=== PATIENT | male | born 1940 | race Caucasian/White ===

== ENCOUNTER 2019-12-16 20:19 | Inpatient (IN) | payer OTHER, MEDICAID, SELFPAY ==
[~2019-12-16] VITALS: Ht 175.3 cm; Wt 90.7 kg
[2019-12-16] MEDS: NACL 0.9% 1,000 ML IV SCH
--- NOTE | 2019-12-16 20:19 | NUR ---
pt biba to bed 2.
--- NOTE | 2019-12-16 20:19 | NUR ---
SEIZURE PRECAUTIONS PLACED FOR PT
--- NOTE | 2019-12-16 20:20 | NUR ---
Pt placed on pulse ox and 3 lead ecg.
[2019-12-16 20:23] VITALS: BP_SYST 168; BP_SYST 96; BP_DIAS 70; BP_DIAS 90
--- NOTE | 2019-12-16 20:30 | NUR ---
PATIENT ERINN FROM [facility] FOR SEIZURE. PER EMS PATIENT HAD A WITNESSED SEIZURE FROM PATIENTS ROOMMATE FOR 20-30 SECONDS. PATIENTN ARRIVED TO HOSPITAL, PLACED IN SEIZURE PRECAUTIONS. COVID PRECAUTIONS PLACED. PER DAUGHTER ON PHONE AND FACILITY: PATIENT HAS HAD A CHRONIC COUGH AND WHEEZING FROM COPD BUT HAS GOTTEN WORSE. PATIENT AOX3, BUT WOULD ANSWER QUESTIONS INCORRECTLY AT TIMES, GCS 13 ([id number]). PATIENT DOES NOT KNOW WHY HE WAS BROUGHT TO HOSPITAL. PER FACILTIY PATIENT HAS HAD A STROKE IN 2018 AND HAS LEFT SIDED WEAKNESS SINCE. PATIENT BREATHING EVEN AND UNLABORED, WHEEZING ON EXPIRATION, SKIN WARM AND DRY. BED IN LOWEST POSITION, LOCKED, BED RAIL UPX1. PMH - STROKE (2018), HTN, COPD, SEVERE HEARING LOSS ALLERGIES - NKA
--- NOTE | 2019-12-16 20:30 | NUR ---
Dr. moore at bedside.
[2019-12-16] MEDS ORDERED: LORazepam 2 MG/ML VIAL IVP ONE (21:00)
[2019-12-16 21:21] LABS: BASOPHILS # (AUTO) 0.1 K/uL (0.00-0.22); BASOPHILS % (AUTO) 1.2 % (0.0-2.0); EOSINOPHILS # (AUTO) 0.8 K/uL (0-0.4); EOSINOPHILS % (AUTO) 8.5 % (0.0-4.0); HEMATOCRIT 44.4 % (36-52); HEMOGLOBIN 14.9 g/dL (12.0-18.0); LYMPHOCYTES # (AUTO) 3.4 K/uL (2.0-11.5); LYMPHOCYTES % (AUTO) 37.4 % (20.5-51.1); MEAN CORPUSCULAR HEMOGLOBIN 31 pg (27-31); MEAN CORPUSCULAR HGB CONC 34 g/dL (33-37); MEAN CORPUSCULAR VOLUME 90.9 fL (80-94); MONOCYTES % (AUTO) 10.7 % (1.7-9.3); NEUTROPHILS # (AUTO) 3.8 K/uL (1.8-7.7); NEUTROPHILS % (AUTO) 42.2 % (42.2-75.2); PLATELET COUNT (AUTO) 182 K/uL (140-450); RED BLOOD CELL COUNT(AUTO) 4.89 MIL/uL (4.20-6.10); RED CELL DISTRIBUTION WIDTH 14.3 % (11.6-13.7)
[2019-12-16 21:24] LABS: APPEARANCE,URINE CLEAR (CLEAR); BILIRUBIN,URINE NEGATIVE (NEGATIVE); BLOOD, URINE TRACE-I (NEGATIVE); COLOR,URINE YELLOW (YELLOW); LEUKOCYTE ESTERASE ,URINE NEGATIVE (NEGATIVE); NITRITE, URINE NEGATIVE (NEGATIVE); UGLUCOSE NEGATIVE (NEGATIVE)
--- NOTE | 2019-12-16 21:25 | NUR ---
CORONAVIRUS, RSV, AND INFLUENZA SWABS OBTAINED
--- NOTE | 2019-12-16 21:31 | NUR ---
PATIENT GOING TO CT SCAN
[2019-12-16 21:34] LABS: RBC,URINE 0-5 /HPF (0-5); WBC,URINE 0-5 /HPF (0-5)
[2019-12-16 21:40] LABS: ALBUMIN 3.7 g/dL (3.4-5.0); ANION GAP 12.5 (8-16); ASPARTATE AMINOTRANSFERASE 32 U/L (15-37); CARBON DIOXIDE 28.1 mmol/L (21-32); CHLORIDE 103 mmol/L (98-107); GLUCOSE 103 mg/dL (74-106); POTASSIUM 3.6 mmol/L (3.5-5.1); PROTHROMBIN TIME 11.7 secs (10.8-13.4); SODIUM SERUM 140 mmol/L (136-145); TOTAL BILIRUBIN 0.6 mg/dL (0.0-1.0); UREA NITROGEN, BLOOD 14 mg/dL (7-18)
[2019-12-16 21:49] LABS: C-REACTIVE PROTEIN QUANT 0.3 mg/dL (0.0-0.9); LACTATE DEHYDROGENASE 222 U/L (85-227)
[2019-12-16 22:18] LABS: RSV NEGATIVE (NEGATIVE)
[2019-12-16] MEDS ORDERED: DOCUSATE SODIUM 100 MG GELCAP PO PRN (22:50)
[2019-12-16] MEDS ORDERED: HYDROcodone/APAP 5/325 MG 1 TAB TAB PO PRN (22:50)
[2019-12-16] MEDS ORDERED: LORazepam 2 MG/ML VIAL IM/IVP PRN (22:50)
[2019-12-16] MEDS ORDERED: ACETAMINOPHEN 325 MG TAB PO PRN (22:50)
[2019-12-16] MEDS ORDERED: ONDANSETRON 4 MG/2 ML VIAL IM/IVP PRN (22:50)
[2019-12-16] MEDS ORDERED: MORPHINE SULFATE 2 MG/ML SYR IVP PRN (22:50)
[2019-12-16 23:20] LABS: MAGNESIUM 1.8 mg/dL (1.8-2.4); PHOSPHORUS 2.9 mg/dL (2.5-4.9); THYROID STIMULATING HORMONE 2.03 uIU/mL (0.34-3.74)
[2019-12-16] MEDS ORDERED: AZITHROMYCIN 250 MG TAB PO SCH (23:40)
[2019-12-16] MEDS ORDERED: ALBUTEROL HFA MDI 90 MCG/ACTUATION 8 GM INH PRN (23:40)
--- NOTE | 2019-12-16 23:55 | NUR ---
Note janieone in EDM - 12/17/19 at 0006 by [facility] Patient will be admitted to care of Dr Kulkarni. Admited to Tele. Will go to room 115. Belongings list completed. Report to Manuel LAST. Patient is not as confused as during triage, patient is more coherent and able to answer questions as asked.
[2019-12-17] VITALS: BP 139/69
--- NOTE | 2019-12-17 | NUR ---
RECEIVED BEDSIDE REPORT FROM ER NURSE, SHERRILL. PT BREATHING EVEN AND UNLABORED. SKIN INTACT, WARM AND DRY TO TOUCH. DX: NEW SEIZURE, HX: HTN, STROKE, COPD. IV SITE ON RAC, 20G PATENT, INTACT AND ASYMPTOMATIC. DROPLET AND CONTACT PRECAUTION D/T RULING OUT COVID 19. SEIZURE, FALL PRECAUTION IN PLACE, MRSA SWAB DONE, VS CHECKED, 97% IN ROOM AIR, 80, 98.1, 139/69, 0/10. PT HAVE HARD OF HEARING ON BOTH EAR. BED IN LOW POSITION, CALL LIGHT WITHIN REACH.
[2019-12-17] MEDS ORDERED: AZITHROMYCIN 250 MG TAB ONE (00:36)
--- NOTE | 2019-12-17 00:39 | NUR ---
GIVEN AZITHROMYCIN MD ORDERED. PT TOLERATED WELL.
--- NOTE | 2019-12-17 01:00 | NUR ---
MADE CALL TO DAUGHTER AND CONNECT WITH PT.
[2019-12-17] MEDS ORDERED: CARV3.12 PO (01:08)
[2019-12-17] MEDS ORDERED: LIP80 PO (01:08)
[2019-12-17] MEDS ORDERED: CARB15DR61 OT (01:08)
[2019-12-17] MEDS ORDERED: ASPI-1822 PO (01:08)
[2019-12-17] MEDS ORDERED: SENN-72 PO (01:08)
[2019-12-17] MEDS ORDERED: MELA3TER PO (01:08)
[2019-12-17] MEDS ORDERED: MULT1SGL58 PO (01:08)
[2019-12-17] MEDS ORDERED: AMLO2.5T PO (01:08)
[2019-12-17] MEDS ORDERED: DOCU-299 PO (01:08)
[2019-12-17] MEDS ORDERED: OLOP2.5S OP (01:08)
[2019-12-17] MEDS ORDERED: LACT10CA1 PO (01:08)
[2019-12-17] MEDS ORDERED: MELATONIN 3 MG TAB PO PRN (01:10)
[2019-12-17] MEDS ORDERED: SENNA 8.6 MG TAB PO PRN (01:10)
[2019-12-17] MEDS ORDERED: guaiFENesin DM 200/20 MG-10 ML 10 ML UDC PO PRN (01:50)
[2019-12-17] MEDS ORDERED: GUAI-646 PO (02:01)
[2019-12-17] MEDS ORDERED: PRED20TA5 PO (02:01)
[2019-12-17] MEDS: CARVEDILOL 3.125 MG TAB PO SCH ×3 (02:26→20:05)
--- NOTE | 2019-12-17 02:26 | NUR ---
GIVEN COREG MD ORDERED. PT TOLERATED WELL.
[2019-12-17 04:00] VITALS: BP 146/65
--- NOTE | 2019-12-17 04:00 | NUR ---
VS CHECKED, WITHIN PT'S BASELINE, CHANGED PT WITH ORTHODONTIC TREATMENT COORDINATOR, SARA, ASSESS SKIN, NO OPEN WOUND OR FUNGAL INFECTION NOTED.
--- NOTE | 2019-12-17 05:35 | NUR ---
PT SLEEPING IN BED. NO ACUTE DISTRESS NOTED.
[2019-12-17] MEDS ORDERED: cefTRIAXone 1,000 MG VIAL ONE (06:59)
--- NOTE | 2019-12-17 07:01 | NUR ---
GIVEN ROCEPHIN MD ORDERED. PT TOLERATED WELL. PT IN STABLE CONDITION. WILL ENDORSE PT TO DAY SHIFT NURSETRINITY FOR CONTINUOUS CARE.
--- NOTE | 2019-12-17 07:02 | NUR ---
RECEIVED REPORT FROM COTTON FARMWORKER NURSE KODY FOR CONTINUITY OF CARE. PT IN STABLE CONDITION. RESPIRATIONS EVEN AND UNLABORED. IV INTACT AND PATENT. SAFETY MEASURES IN PLACE. BED IN LOW POSITION. BED ALARM ON. CALL LIGHT AT BEDSIDE. WILL CONTINUE TO MONITOR.
[2019-12-17 07:44] LABS: BASOPHILS # (AUTO) 0.1 K/uL (0.00-0.22); BASOPHILS % (AUTO) 0.9 % (0.0-2.0); EOSINOPHILS # (AUTO) 0.6 K/uL (0-0.4); EOSINOPHILS % (AUTO) 6.5 % (0.0-4.0); HEMATOCRIT 39.6 % (36-52); HEMOGLOBIN 13.5 g/dL (12.0-18.0); LYMPHOCYTES # (AUTO) 2.4 K/uL (2.0-11.5); LYMPHOCYTES % (AUTO) 26.5 % (20.5-51.1); MEAN CORPUSCULAR HEMOGLOBIN 31 pg (27-31); MEAN CORPUSCULAR HGB CONC 34 g/dL (33-37); MEAN CORPUSCULAR VOLUME 90.3 fL (80-94); MONOCYTES # (AUTO) 0.8 K/uL (0.8-1.0); MONOCYTES % (AUTO) 8.9 % (1.7-9.3); NEUTROPHILS # (AUTO) 5.2 K/uL (1.8-7.7); NEUTROPHILS % (AUTO) 57.2 % (42.2-75.2); PLATELET COUNT (AUTO) 149 K/uL (140-450); RED BLOOD CELL COUNT(AUTO) 4.39 MIL/uL (4.20-6.10); RED CELL DISTRIBUTION WIDTH 14.2 % (11.6-13.7); WHITE BLOOD COUNT (AUTO) 9.1 K/uL (4.8-10.8)
[2019-12-17 07:49] LABS: ANION GAP 12.8 (8-16); CARBON DIOXIDE 25.8 mmol/L (21-32); CHLORIDE 105 mmol/L (98-107); CREATININE 0.9 mg/dL (0.6-1.3); GLUCOSE 94 mg/dL (74-106); POTASSIUM 3.6 mmol/L (3.5-5.1); SODIUM SERUM 140 mmol/L (136-145); UREA NITROGEN, BLOOD 12 mg/dL (7-18)
[2019-12-17 08:00] VITALS: BP 136/84
[2019-12-17 08:03] LABS: CHOL/HDL RATIO 1.9 (1-4.5)
[2019-12-17] MEDS: ASCORBIC ACID 500 MG TAB PO SCH (08:31)
[2019-12-17] MEDS: LACTOBACILLUS RHAMNOSUS GG 1 EACH CAP PO SCH (08:31)
[2019-12-17] MEDS: ZINC SULF 220 MG CAP PO SCH (08:31)
[2019-12-17] MEDS: MULTIVITAMIN/MINERALS 1 TAB PO SCH (08:32)
[2019-12-17] MEDS: DOCUSATE SODIUM 100 MG GELCAP PO SCH (08:32)
[2019-12-17] MEDS: amLODIPine 5 MG TAB PO SCH (08:32)
[2019-12-17] MEDS: ASPIRIN 81 MG TAB.CHEW PO SCH (08:32)
[2019-12-17] MEDS: guaiFENesin 600 MG TABER PO SCH ×2 (08:33→20:05)
--- NOTE | 2019-12-17 08:33 | NUR ---
GAVE ORDERED DUE MEDICATIONS AT THIS TIME. PT TOLERATED WELL. BED IN LOW POSITION. CALL LIGHT AT BEDSIDE. WILL CONTINUE TO MONITOR.
[2019-12-17] MEDS: ENOXAPARIN 40 MG/0.4 ML SYR SUBQ SCH (08:37)
[2019-12-17] MEDS ORDERED: predniSONE 20 MG TAB PO SCH (09:00)
[2019-12-17] MEDS ORDERED: CARBAMIDE PEROXIDE 6.5% OT 15 ML BTL OT SCH (09:00)
[2019-12-17] MEDS ORDERED: ENOXAPARIN 40 MG/0.4 ML SYR SUBQ SCH (09:00)
--- NOTE | 2019-12-17 09:00 | NUR ---
PATIENT HAS BEEN SCREENED AND CATEGORIZED MODERATE NUTRITION RISK. PATIENT WILL BE SEEN WITHIN 3-5 DAYS OF ADMISSION. 12/19/19 12/21/[address]
--- NOTE | 2019-12-17 10:01 | NUR ---
ASSISTED PATIENT WITH URINAL AT THIS TIME. BED IN LOW POSITION. CALL LIGHT AT BEDSIDE. WILL CONTINUE TO MONITOR.
--- NOTE | 2019-12-17 10:27 | NUR ---
Data Processing Manager Note: Basic Screen: Yes High Risk DC Screen [place]: PRATIBHA STROUD Home Relationship: DAUGHTER Pre-Admission Living Arrangements: Other Other: ASSISTED LIVING - [facility] Prior ADL Total/Dependent Current Home Health Name/Tel: N/A Current DME/02 Name/Tel: [facility] Current Hospice Name/Tel: N/A Current Dialysis Name/Tel: N/A Healthcare Decision Maker: Next of Kin Other: PRATIBHA STROUD Advance Directive No Physician Orders for Life Sustaining Treatment Form No Patient/Family Have Educational Needs No Discipline: Case Mgt/Social Svcs Tentative Discharge Plan/Destination: Other Other: ASSISTED LIVING - [facility] Referred to [facility] Clam Dredge: No Tentative Discharge Plan Summary: Patient is a 79-year-old male admitted for new seizures. Patient has PMHX of right hemorrhagic stroke w/ left hemiparesis, hearing loss, left-sided facial droop, HTN, DJD, COPD, and anxiety. Patient was admitted from [facility]. SW contacted Michael from [facility] [phone]. Per Michael, patient needs assistance with all ADLs except feeding. Patient is alert/oriented @ baseline. Tentative discharge plan is for patient to return to [facility] pending COVID test. No further needs identified. Signature: RILEY Mcmanus Date: Dec 17, 2019 Time: 10:27
[2019-12-17 12:00] VITALS: BP 134/82
--- NOTE | 2019-12-17 12:08 | NUR ---
GAVE PRN MEDICATION FOR NAUSEA. PATIENT TOLERATED WELL. BED IN LOW POSITION. CALL LIGHT AT BEDSIDE. WILL CONTINUE TO MONITOR.
[2019-12-17] MEDS: CARBAMIDE PEROXIDE 6.5% OT 15 ML BTL BOTH EARS SCH (12:10)
[2019-12-17] MEDS ORDERED: levETIRAcetam 1,000 MG in NACL 0.9% 100 ML IV SCH (13:00)
--- NOTE | 2019-12-17 14:00 | NUR ---
DAUGHTER PRATIBHA CALLED WITH BROTHER ERNESTO HYATT FOR UPDATE ON PATIENT. ALL QUESTIONS ANSWERED AT THIS TIME. TRANSFERRED CALL TO PATIENT TO SPEAK WITH CHILDREN. BED IN LOW POSITION. CALL LIGHT AT BEDSIDE. BED ALARM ON. WILL CONTINUE TO MONITOR.
--- NOTE | 2019-12-17 14:16 | NUR ---
DC PLANN[age] YRS OLD MALE PATIENT WAS ADMITTED FROM [facility] (ASSISTED LIVING) WITH A DX OF NEW SEIZURE, COPD AND R/O COVID. PATIENT HAS A HX OF STROKE LEFT SIDED WEAKNESS COPD AND HTN. PATIENT BASELINE AMBULATE WITH WALKER AND NO HOME O2. CT HEAD SHOWED NEGATIVE FOR INTRACRANIAL HEMORRHAGE. CXRAY SHOWED CARDIOMEGALY MINOR LEFT BASILAR OPACITY POSSIBLE PNEUMONIA. INFLUENZA A&B NEGATIVE . COVID-19 IS PENDING, BLOOD AND URINE CULTURE IS PENDING. STARTED IV ATIVAN PRN FOR SEIZURE .CONSULT WITH NEUROLOGIST. DC PLAN TO GO BACK TO [facility] . CM TO FOLLOW. Addendum: 12/18/19 at 1054 by Flor Au DC PLANNING: SEEN BY DR MOTTA ORDER EEG AND KEPPRA IV FOR NEW SEIZURE. DR DON AND DR ALVAREZ SEEN PT ,AWAITING FOR COVID TEST RESULT STILL PENDING , NO ACUTE DISTRESS AT THIS TIME DC PLAN PER COVID RESULT CM TO FOLLOW. Addendum: 12/19/19 at 1051 by Flor Au DC PLANNING: COVID 19 RESULT IS NEGATIVE, SEEN BY KO AND ID CLEARED PATIENT. DR MOTTA STATED ONCE SEIZURE FREE 24 HOURS OK TO DC ON KEPPRA AND WILL READ EEG ONCE READY. PT HAS NO SEIZURE FOR 24 HRS . DC PLAN AWAITING FOR DR MOTTA TO READ THE EEG. CM TO FOLLOW Addendum: 12/20/19 at 1127 by Flor Au CM DC PLANNING: [facility] [phone] SPOKE WITH JOSY SQUIRREL MAN STATED SINCE PATIENT COMES FROM THE HOSPITAL THEY HAVE TO PUT PATIENT ON ISO ROOM FOR 14 DAYS AND THEY ARE UNABLE TO PROVIDED TRANSPORT WELL. BUT THEY ARE WORKING ON ISO ROOM AND WILL CALL BACK. CALLED ALEXUS SPOKE WITH EMMANUEL [phone] NOTIFIED HER THAT PT NEEDS HOME HEALTH FOR PT AND TRANSPORT FAXED ALL THE PAPERWORK TO [phone]. FOR TRANSPORT THEY ARE CONTRACTED WITH [facility] AUTH # [id number] CALLED [facility] [phone] IT WILL CALL. CM TO FOLLOW Addendum: 12/20/19 at 1351 by Flor Au CM DC PLANNING: [facility] [phone] SPOKE WITH JOSE ENRIQUE , STATED THE ISO ROOM WILL BE READY BY 5PM AND CLARIFIED PT'S PHARMACY PER JOSE ENRIQUE [facility] THEIR OWN [facility] # [phone] OR [phone] BIRD . ARRANGED TRANSPORT WITH [facility] [employer] TIME 6 PM MARLO LAST AWARE OF IT.
[2019-12-17] MEDS: methylPREDNISolone SS 125 MG/2 ML VIAL IVP SCH (15:10)
[2019-12-17 16:00] VITALS: BP 140/84
--- NOTE | 2019-12-17 16:33 | NUR ---
PT WATCHING TV AT THIS TIME. BED IN LOW POSITION. CALL LIGHT AT BEDSIDE. BED ALARM ON. WILL CONTINUE TO MONITOR.
[2019-12-17] MEDS: NACL 0.9% 1,000 ML IV SCH (17:30)
--- NOTE | 2019-12-17 18:01 | NUR ---
PT WATCHING TV AT THIS TIME. BED IN LOW POSITION. CALL LIGHT AT BEDSIDE. BED ALARM ON. WILL CONTINUE TO MONITOR.
--- NOTE | 2019-12-17 19:15 | NUR ---
GAVE REPORT TO ALE FOR CONTINUITY OF CARE PT IN STABLE CONDITION.
--- NOTE | 2019-12-17 19:16 | NUR ---
RECEIVED BEDSIDE REPORT FROM DAY RN FOR CONTINUITY OF CARE. PT IN STABLE CONDITION. RESPIRATIONS EVEN AND UNLABORED ON RA. PT HAS WHEEZING. IV ON RAC 20G INTACT AND PATENT IVF INFUSING PER ORDERS. SKIN IS INTACT. PT R/O COVID ISOLATION SIGN AT DOOR. PT AAOX1-2. [place]. POC DISCUSSED WITH PT. SAFETY MEASURES IN PLACE. BED IN LOW POSITION. BED ALARM ON. CALL LIGHT AT BEDSIDE. WILL CONTINUE TO MONITOR.
[2019-12-17 20:00] VITALS: BP 110/63
[2019-12-17] MEDS ORDERED: CRUSHER, PILL MC ONE (20:01)
[2019-12-17] MEDS: ATORVASTATIN 80 MG TAB PO SCH (20:04)
[2019-12-17] MEDS: levETIRAcetam 500 MG TAB PO SCH (20:05)
--- NOTE | 2019-12-17 20:05 | NUR ---
VSS, MOJGAN MEDICATIONS GIVEN PER ORDERS. PT WET. CHANGED BEDDING AND GOWN. PT REPOSITION FOR COMFORT. ALL NEEDS MET AT THIS TIME. CALL LIGHT IS WITHIN REACH
--- NOTE | 2019-12-17 21:00 | NUR ---
IV WAS LEAKING REMOVED. IV CATH IS INTACT. NEW IV ON R UPPER ARM 22G ON FIRST ATTEMPT. PT TOLERATED WELL. PT ON PHONE WITH DAUGHTER. ALL NEEDS MET. WILL CONTINUE TO MONITOR.
--- NOTE | 2019-12-17 22:32 | NUR ---
GAVE PT KARLLLO PER REQUEST. ALL NEED MET AT THIS TIME. WILL CONTINUE TO MONITOR.
[2019-12-18] VITALS: BP 153/66
[2019-12-18] MEDS: AZITHROMYCIN 250 MG TAB PO SCH (00:02)
--- NOTE | 2019-12-18 00:02 | NUR ---
VSS. MOJGAN MEDICATIONS GIVEN PER ORDERS. PT WAS CLEANED AND REPOSITION FOR COMFORT. CALL LIGHT IS WITHIN REACH. WILL CONTINUE TO MONITOR.
--- NOTE | 2019-12-18 02:00 | NUR ---
PT IS SLEEPING COMFORTABLY IN BED WITH EYES CLOSED. CHEST RISE AND FALL NOTED. ALL SAFETY MEASURES ARE IN PLACE. CALL LIGHT IS WITHIN REACH.
[2019-12-18 04:00] VITALS: BP 140/64
--- NOTE | 2019-12-18 04:00 | NUR ---
VSS. PATIENT WAS CLEANED AND REPOSITION FOR COMFORT. ALL NEEDS MET. CALL LIGHT IS WITHIN REACH.
[2019-12-18] MEDS ORDERED: PIPERACILLIN/TAZOBACTAM 3.375 GM VIAL IV ONE (04:17)
[2019-12-18] MEDS: PIPERACILLIN/TAZOBACTAM 3.375 GM in DEXTROSE 5% 50 ML IV SCH ×3 (04:24→20:23)
--- NOTE | 2019-12-18 06:50 | NUR ---
PT RESTING COMFORTABLY IN BED. NO S/S OF DISTRESS. PT IS STABLE. CALL LIGHT IS WITHIN REACH.
[2019-12-18 07:16] LABS: BASOPHILS # (AUTO) 0.1 K/uL (0.00-0.22); BASOPHILS % (AUTO) 0.8 % (0.0-2.0); EOSINOPHILS # (AUTO) 0.2 K/uL (0-0.4); EOSINOPHILS % (AUTO) 2.4 % (0.0-4.0); HEMATOCRIT 40.8 % (36-52); HEMOGLOBIN 13.9 g/dL (12.0-18.0); LYMPHOCYTES % (AUTO) 30.5 % (20.5-51.1); MEAN CORPUSCULAR HEMOGLOBIN 31 pg (27-31); MEAN CORPUSCULAR HGB CONC 34 g/dL (33-37); MEAN CORPUSCULAR VOLUME 90.7 fL (80-94); MONOCYTES # (AUTO) 0.9 K/uL (0.8-1.0); MONOCYTES % (AUTO) 9.5 % (1.7-9.3); NEUTROPHILS # (AUTO) 5.5 K/uL (1.8-7.7); NEUTROPHILS % (AUTO) 56.8 % (42.2-75.2); PLATELET COUNT (AUTO) 150 K/uL (140-450); WHITE BLOOD COUNT (AUTO) 9.8 K/uL (4.8-10.8)
--- NOTE | 2019-12-18 07:30 | NUR ---
SHIFT REPORT RECEIVED FROM PRODUCTION SUPPORT CONSULTANT NURSE. PT IS AWAKE AND RESPONSIVE. NO DISTRESS NOTED. RESPIRATION WITHIN NORMAL LEVELS. SAFETY MEASURES IN PLACE WILL CONTINUE TO MONITOR. CALL LIGHT IN REACH.
[2019-12-18 08:00] VITALS: BP 136/61
[2019-12-18] MEDS: NACL 0.9% 1,000 ML IV SCH (08:08)
[2019-12-18] MEDS: ASPIRIN 81 MG TAB.CHEW PO SCH (08:21)
[2019-12-18] MEDS: LACTOBACILLUS RHAMNOSUS GG 1 EACH CAP PO SCH (08:21)
[2019-12-18] MEDS: MULTIVITAMIN/MINERALS 1 TAB PO SCH (08:21)
[2019-12-18] MEDS: levETIRAcetam 500 MG TAB PO SCH ×2 (08:22→20:23)
[2019-12-18] MEDS: guaiFENesin 600 MG TABER PO SCH ×2 (08:22→20:24)
[2019-12-18] MEDS: ASCORBIC ACID 500 MG TAB PO SCH (08:22)
[2019-12-18] MEDS: DOCUSATE SODIUM 100 MG GELCAP PO SCH (08:23)
[2019-12-18] MEDS: ZINC SULF 220 MG CAP PO SCH (08:35)
[2019-12-18] MEDS: CARBAMIDE PEROXIDE 6.5% OT 15 ML BTL BOTH EARS SCH (08:36)
[2019-12-18 08:38] LABS: ALBUMIN 3.4 g/dL (3.4-5.0); ANION GAP 11.8 (8-16); ASPARTATE AMINOTRANSFERASE 39 U/L (15-37); CARBON DIOXIDE 28.3 mmol/L (21-32); CHLORIDE 105 mmol/L (98-107); GLUCOSE 93 mg/dL (74-106); LACTATE DEHYDROGENASE 242 U/L (85-227); MAGNESIUM 1.7 mg/dL (1.8-2.4); PHOSPHORUS 3.4 mg/dL (2.5-4.9); POTASSIUM 4.1 mmol/L (3.5-5.1); SODIUM SERUM 141 mmol/L (136-145); TOTAL BILIRUBIN 0.9 mg/dL (0.0-1.0); UREA NITROGEN, BLOOD 14 mg/dL (7-18)
[2019-12-18 08:41] LABS: CKMB RELATIVE INDEX 1.1 (0.0-2.5); CREATINE KINASE MB 6.9 ng/mL (0-3.6)
[2019-12-18] MEDS: CARVEDILOL 3.125 MG TAB PO SCH ×2 (08:48→20:24)
[2019-12-18] MEDS: amLODIPine 5 MG TAB PO SCH (08:48)
[2019-12-18] MEDS: ENOXAPARIN 40 MG/0.4 ML SYR SUBQ SCH (08:49)
--- NOTE | 2019-12-18 09:00 | NUR ---
PT WAS GIVEN MORNING MEDICATIONS. PT IS RESPONSIVE AND COOPERATIVE. PT SELF CHANGES POSITION. VITAL SIGNS WITHIN NORMAL LEVELS. CALL LIGHT IN REACH. WILL CONTINUE TO MONITOR.
--- NOTE | 2019-12-18 11:18 | NUR ---
PT IS RESTING IN BED. ABLE TO WATCH PT THOUGH MONITOR. PT IS SLEEPING ON HIS LEFT SIDE. PT'S DAUGHTER CALLED AT 1000. ASKED ABOUT THE PATIENTS CONDITION. WILL CONTINUE TO MONITOR.
[2019-12-18 12:00] VITALS: BP 126/67
[2019-12-18] MEDS ORDERED: ALBUTEROL SULFATE/IPRATROPIU 3 ML SOL IH PRN (12:10)
[2019-12-18] MEDS: methylPREDNISolone SS 125 MG/2 ML VIAL IVP SCH (12:31)
[2019-12-18] MEDS: MUPIROCIN CA NASAL 2% 1GM TUBE NS SCH (12:33)
[2019-12-18] MEDS: CHLORHEXADINE GLUC 2% CLOTH TP SCH (12:34)
--- NOTE | 2019-12-18 15:15 | NUR ---
PT IS RESTING IN BED. PT IS RESPONSIVE TO VERBAL STIMULI. NO DISTRESS NOTED. PT IS COOPERATIVE. WILL CONTINUE TO MONITOR. CALL LIGHT IN REACH.
[2019-12-18 16:00] VITALS: BP 135/80
--- NOTE | 2019-12-18 17:00 | NUR ---
PT IS AWAKE AND RESPONSIVE. PT IS COOPERATIVE. NO DISTRESS OF COMPLAINS OF PAIN REPORTED. WILL CONTINUE TO MONITOR. CALL LIGHT IN REACH.
[2019-12-18] MEDS ORDERED: MAG SULF 2000 MG/WATER PREMIX 50 ML IV ONE (18:30)
--- NOTE | 2019-12-18 19:21 | NUR ---
SHIFT REPORT GIVEN TO FLIGHT RADIO OFFICER NURSE. PT IS IN STABLE CONDITION. CALL LIGHT IN REACH.
--- NOTE | 2019-12-18 19:22 | NUR ---
RECEIVED BEDSIDE REPORT FROM DAY RN FOR CONTINUITY OF CARE. PT IN STABLE CONDITION. RESPIRATIONS EVEN AND UNLABORED ON RA. PT HAS WHEEZING WILL CALL RT FOR ORN BREATHING TX. IV ON ADDIE 22G INTACT AND PATENT MG RIDER INFUSING PER ORDERS. SKIN IS INTACT. PT ON CONTACT ISOLATION FOR MRSA OF NARES SIGN AT DOOR. PT AAOX3. [place]. POC DISCUSSED WITH PT. SAFETY MEASURES IN PLACE. BED IN LOW POSITION. BED ALARM ON. CALL LIGHT AT BEDSIDE. WILL CONTINUE TO MONITOR.
[2019-12-18 20:00] VITALS: BP 115/50
[2019-12-18] MEDS: ATORVASTATIN 80 MG TAB PO SCH (20:24)
--- NOTE | 2019-12-18 20:27 | NUR ---
VSS. MOJGAN MEDICATIONS GIVEN PER ORDERS. PT TOLERATED WELL. ALL SAFETY MEASURES ARE IN PLACE. CALL LIGHT IS WITHIN REACH. WILL CONTINUE TO MONITOR.
--- NOTE | 2019-12-18 22:00 | NUR ---
SPOKE WITH PATIENT'S DAUGHTER AND GAVE UPDATE. DAUGHTER WAS CONCERN BECAUSE SHE HAS NOT BEEN ABLE TO SPEAK WITH HER FATHER THROUGHOUT THE DAY. EXPLAIN PATIENT IS ASLEEP AT THIS TIME BUT IF SHE WISHES AND EASE CONCERN I CAN WAKE HIM UP. DAUGHTER SAID YES ID LIKE TO TALK TO HIM. PATIENT SPEAKING WITH DAUGHTER ON PHONE. NO S/S OF DISTRESS. PER DAUGHTER SHE WILL CALL AGAIN TOMORROW AM. PT LAYING COMFORTABLY IN BED WITH CALL LIGHT WITHIN REACH. WILL CONTINUE TO MONITOR.
[2019-12-19] VITALS: BP 137/72
--- NOTE | 2019-12-19 | NUR ---
PATIENT IS SLEEPING COMFORTABLY IN BED WITH EYES CLOSED. HE IS EASILY AROUSABLE. VSS. ALL NEEDS MET AT THIS TIME. CALL LIGHT IS WITHIN REACH. WILL CONTINUE TO MONITOR.
[2019-12-19] MEDS: AZITHROMYCIN 250 MG TAB PO SCH ×2 (00:48→09:00)
[2019-12-19] MEDS: NACL 0.9% 1,000 ML IV SCH ×2 (00:50→17:55)
--- NOTE | 2019-12-19 02:00 | NUR ---
MADE ROUNDS. PT SLEEPING COMFORTABLY IN BED. NO S/S OF DISTRESS.
[2019-12-19 04:00] VITALS: BP 117/83
--- NOTE | 2019-12-19 04:00 | NUR ---
VSS. INSERTED NEW IV ON R HAND 22G ON FIRST ATTEMPT PT TOLERATED WELL. OLD IV ON ADDIE ARM REMOVED CATH INTACT.
[2019-12-19] MEDS: PIPERACILLIN/TAZOBACTAM 3.375 GM in DEXTROSE 5% 50 ML IV SCH ×3 (04:55→21:45)
--- NOTE | 2019-12-19 07:27 | NUR ---
GAVE BEDSIDE REPORT TO DAY RN. PT ENDORSED IN STABLE CONDITION.
--- NOTE | 2019-12-19 07:27 | NUR ---
RECEIVED REPORT FROM NIGHT NURSE. PATIENT IN BED ASLEEP, EASILY AROUSABLE BY NAME OR TOUCH. SKIN WARM AND DRY TOUCH. NO S/S OF DISTRESS NOTED. PLANS OF CARE DISCUSSED. IV INTACT AND PATENT TO RIGHT HAND. NS IVF INFUSING @ 60ML/HR. BED IN LOW POSITION. SAFETY MEASURES IN PLACE. CALL LIGHT WITHIN REACH.
[2019-12-19 07:37] LABS: BASOPHILS % (AUTO) 0.4 % (0.0-2.0); HEMATOCRIT 40.1 % (36-52); HEMOGLOBIN 13.3 g/dL (12.0-18.0); LYMPHOCYTES # (AUTO) 1.7 K/uL (2.0-11.5); LYMPHOCYTES % (AUTO) 13.1 % (20.5-51.1); MEAN CORPUSCULAR HEMOGLOBIN 30 pg (27-31); MEAN CORPUSCULAR HGB CONC 33 g/dL (33-37); MEAN CORPUSCULAR VOLUME 91.2 fL (80-94); MONOCYTES # (AUTO) 0.5 K/uL (0.8-1.0); MONOCYTES % (AUTO) 3.7 % (1.7-9.3); NEUTROPHILS # (AUTO) 10.8 K/uL (1.8-7.7); NEUTROPHILS % (AUTO) 82.8 % (42.2-75.2); PLATELET COUNT (AUTO) 161 K/uL (140-450); RED CELL DISTRIBUTION WIDTH 13.8 % (11.6-13.7); WHITE BLOOD COUNT (AUTO) 13.1 K/uL (4.8-10.8)
[2019-12-19 07:53] LABS: ALBUMIN 3.3 g/dL (3.4-5.0); ANION GAP 12.9 (8-16); ASPARTATE AMINOTRANSFERASE 32 U/L (15-37); CARBON DIOXIDE 26.3 mmol/L (21-32); CHLORIDE 104 mmol/L (98-107); CREATININE 1.1 mg/dL (0.6-1.3); GLUCOSE 137 mg/dL (74-106); LACTATE DEHYDROGENASE 187 U/L (85-227); MAGNESIUM 2.2 mg/dL (1.8-2.4); PHOSPHORUS 3.6 mg/dL (2.5-4.9); POTASSIUM 4.2 mmol/L (3.5-5.1); SODIUM SERUM 139 mmol/L (136-145); TOTAL BILIRUBIN 0.7 mg/dL (0.0-1.0); UREA NITROGEN, BLOOD 16 mg/dL (7-18)
[2019-12-19 08:00] VITALS: BP 125/65
[2019-12-19] MEDS: ENOXAPARIN 40 MG/0.4 ML SYR SUBQ SCH (08:49)
[2019-12-19] MEDS: MULTIVITAMIN/MINERALS 1 TAB PO SCH (08:59)
[2019-12-19] MEDS: DOCUSATE SODIUM 100 MG GELCAP PO SCH (08:59)
[2019-12-19] MEDS: guaiFENesin 600 MG TABER PO SCH ×2 (09:00→21:46)
[2019-12-19] MEDS: LACTOBACILLUS RHAMNOSUS GG 1 EACH CAP PO SCH (09:00)
[2019-12-19] MEDS: ASPIRIN 81 MG TAB.CHEW PO SCH (09:00)
[2019-12-19] MEDS: ASCORBIC ACID 500 MG TAB PO SCH (09:00)
[2019-12-19] MEDS: ZINC SULF 220 MG CAP PO SCH (09:00)
[2019-12-19] MEDS: amLODIPine 5 MG TAB PO SCH (09:11)
[2019-12-19] MEDS: CARVEDILOL 3.125 MG TAB PO SCH ×2 (09:12→21:47)
[2019-12-19] MEDS: levETIRAcetam 500 MG TAB PO SCH ×2 (09:12→21:46)
[2019-12-19] MEDS: CARBAMIDE PEROXIDE 6.5% OT 15 ML BTL BOTH EARS SCH (09:26)
--- NOTE | 2019-12-19 10:00 | NUR ---
AM MEDS GIVEN AND TOLERATED WELL. PT IS AWAKE AND RESPONSIVE. PT IS COOPERATIVE. NO DISTRESS OF COMPLAINS OF PAIN REPORTED. WILL CONTINUE TO MONITOR. CALL LIGHT IN REACH.
[2019-12-19 12:00] VITALS: BP 117/66
[2019-12-19] MEDS: ALBUTEROL SULFATE/IPRATROPIU 3 ML SOL IH SCH ×2 (12:00→18:00)
[2019-12-19] MEDS: CHLORHEXADINE GLUC 2% CLOTH TP SCH (12:57)
[2019-12-19] MEDS: MUPIROCIN CA NASAL 2% 1GM TUBE NS SCH (12:57)
[2019-12-19] MEDS: methylPREDNISolone SS 125 MG/2 ML VIAL IVP SCH (12:59)
--- NOTE | 2019-12-19 13:00 | NUR ---
SPEECH THERAPIST AT BEDSIDE FOR EVAL.
--- NOTE | 2019-12-19 13:40 | NUR ---
DR. MOTTA ON THE PHONE WITH PATIENT'S DAUGHTER.
--- NOTE | 2019-12-19 14:34 | NUR ---
ST CLARIFICATION BEDSIDE SWALLOW EVAL DONE. REC MSFC FOOD AND THIN LIQUIDS, SINGLE SIPS VIA CUP OKAY. ASPIRATION PRECAUTIONS, ORAL CARE (INCLUDING DENTURES), TRAY SET UP, AND CLOSE SUPERVISION NEEDED. CHECK MOUTH FOR RESIDUAL. Pt AT FUNCTIONAL LEVEL AT THIS TIME. ADDITIONAL ST NOT INDICATED AT THIS TIME.
--- NOTE | 2019-12-19 15:00 | NUR ---
PATIENT IS IN STABLE CONDITION. AAOX4. NO DISTRESS NOTED. CALL LIGHT WITHIN REACH.
[2019-12-19 16:00] VITALS: BP 112/72
--- NOTE | 2019-12-19 19:00 | NUR ---
PT IN STABLE CONDITION. WILL ENDORSE TO NIGHT NURSE FOR CONTINUITY OF CARE.
--- NOTE | 2019-12-19 19:10 | NUR ---
RECEIVED ENDORSEMENT AT BEDSIDE FROM AM SHIFT RN. PATIENT IS AOX3. RESPIRATION EVEN AND UNLABORED. DENIES PAIN. PATIENT IS HARD OF HEARING. IV SITE AT RH 22G. INTACT WITH NS INFUSING AT 60CC/HR. LOW BED IN PLACE. ISOLATION PRECAUTION OBSERVED AT ALL TIMES. PLAN OF CARE WAS DISCUSSED. CALL LIGHT WITHIN REACH. WILL CONTINUE TO MONITOR.
[2019-12-19 20:00] VITALS: BP 120/63
--- NOTE | 2019-12-19 21:45 | NUR ---
PATIENT IS AWAKE. ELEVATED HOB. CRUSHED DUE MEDS AND ADMINISTERED PO. PATIENT TOLERATED WELL. NO A/R NOTED. MED ED PROVIDED. LOW BED IN PLACE. SIDE RAILS PADDED FOR SEIZURE PRECAUTION. CALL LIGHT WITHIN REACH. WILL CONTINUE TO MONITOR.
[2019-12-19] MEDS: ATORVASTATIN 80 MG TAB PO SCH (21:47)
--- NOTE | 2019-12-19 21:50 | NUR ---
THE DAUGHTER OF THE PATIENT CALLED AND SPOKE TO HIS FATHER OVER THE PHONE ON PATIENT'S ROOM.
[2019-12-20] VITALS: BP 131/75
--- NOTE | 2019-12-20 00:45 | NUR ---
RECEIVED BEDSIDE REPORT FROM IMPLEMENTATION LEAD RN FOR PT'S CONTINUITY OF CARE. PT IS AAOX3, WATCHING TV, ON ROOM AIR, ON COMMERCIAL DIVER, HAS RIGHT HAND 22G WITH NS AT 60ML/HR. DENIES ANY PAIN OR DISCOMFORT AT THIS TIME. SAFETY MEASURES, ISOLATION PRECAUTION IN PLACE, AND CALL LIGHT IS WITHIN REACH. WILL CONTINUE TO MONITOR PT.
--- NOTE | 2019-12-20 00:45 | NUR ---
PATIENT IS IN STABLE CONDITION. RESPIRATION EVEN AND UNLABORED. NOT IN ANY ACUTE DISTRESS. ENDORSED PATIENT AT BEDSIDE TO SHALA EDWARD FOR CONTINUITY OF CARE. PLAN OF CARE WAS DISCUSSED.
--- NOTE | 2019-12-20 02:30 | NUR ---
ASSISTED PT TO THE URINAL. PT STATES HE FREQUENTLY URINATES. PLACED URINAL CLOSE AT BEDSIDE. INSTRUCTED PT TO USE THE CALL LIGHT WHEN NEEDED. WILL CONTINUE TO MONITOR PT.
--- NOTE | 2019-12-20 04:00 | NUR ---
VS CHECKED AND CHARTED. PT DENIES ANY PAIN, LYING DOWN RESTING. PT HARD OF HEARING, INITIATED COMMUNICATION CLOSER TO THE PT. PT APPRECIATED GESTURE, PT'S NEEDS MET AT THIS TIME. WILL CONTINUE TO MONITOR PT.
[2019-12-20 04:13] VITALS: BP 131/62
[2019-12-20] MEDS: PIPERACILLIN/TAZOBACTAM 3.375 GM in DEXTROSE 5% 50 ML IV SCH ×2 (05:07→13:18)
--- NOTE | 2019-12-20 05:08 | NUR ---
ADMINISTERED SCHEDULED IV ABX ORDERED. PT IS AWAKE, WATCHING TV, DENIES ANY PAIN OR DISCOMFORT. WILL CONTINUE TO MONITOR PT.
--- NOTE | 2019-12-20 07:15 | NUR ---
RECEIVED REPORT FROM NIGHT NURSE FOR CONTINUITY OF CARE, PT IS AAOX3, PT STABLE IN BED, RESPIRATIONS ARE EVEN AND UNLABORED ON ROOM AIR, PT HAS RH 22G INFUSING NS AT 60 ML/H, SKIN INTACT, PT ON CARDIAC DIET, INTRODUCE SELF, UPDATED WHITEBOARD, SAFETY MEASURES IN PLACE, CALL LIGHT WITHIN REACH, WILL CONTINUE TO MONITOR.
[2019-12-20 07:45] LABS: ANION GAP 11.7 (8-16); CARBON DIOXIDE 27.2 mmol/L (21-32); CHLORIDE 106 mmol/L (98-107); GLUCOSE 108 mg/dL (74-106); POTASSIUM 3.9 mmol/L (3.5-5.1); SODIUM SERUM 141 mmol/L (136-145); UREA NITROGEN, BLOOD 13 mg/dL (7-18)
[2019-12-20 08:00] VITALS: BP 148/66
[2019-12-20 08:07] LABS: BASOPHILS % (AUTO) 0.2 % (0.0-2.0); EOSINOPHILS % (AUTO) 0.1 % (0.0-4.0); HEMATOCRIT 39.6 % (36-52); HEMOGLOBIN 13.5 g/dL (12.0-18.0); LYMPHOCYTES # (AUTO) 1.9 K/uL (2.0-11.5); LYMPHOCYTES % (AUTO) 17.6 % (20.5-51.1); MEAN CORPUSCULAR HEMOGLOBIN 31 pg (27-31); MEAN CORPUSCULAR HGB CONC 34 g/dL (33-37); MEAN CORPUSCULAR VOLUME 90.5 fL (80-94); MONOCYTES # (AUTO) 0.6 K/uL (0.8-1.0); MONOCYTES % (AUTO) 5.6 % (1.7-9.3); NEUTROPHILS # (AUTO) 8.4 K/uL (1.8-7.7); NEUTROPHILS % (AUTO) 76.5 % (42.2-75.2); PLATELET COUNT (AUTO) 150 K/uL (140-450); RED BLOOD CELL COUNT(AUTO) 4.38 MIL/uL (4.20-6.10); RED CELL DISTRIBUTION WIDTH 14.3 % (11.6-13.7)
[2019-12-20 08:10] LABS: PHOSPHORUS 3.5 mg/dL (2.5-4.9)
[2019-12-20] MEDS: ALBUTEROL SULFATE/IPRATROPIU 3 ML SOL IH SCH ×2 (08:12→13:25)
[2019-12-20] MEDS: CARBAMIDE PEROXIDE 6.5% OT 15 ML BTL BOTH EARS SCH (09:00)
[2019-12-20] MEDS: ENOXAPARIN 40 MG/0.4 ML SYR SUBQ SCH (09:29)
[2019-12-20] MEDS: DOCUSATE SODIUM 100 MG GELCAP PO SCH (09:30)
[2019-12-20] MEDS: CARVEDILOL 3.125 MG TAB PO SCH (09:30)
[2019-12-20] MEDS: ASPIRIN 81 MG TAB.CHEW PO SCH (09:30)
[2019-12-20] MEDS: LACTOBACILLUS RHAMNOSUS GG 1 EACH CAP PO SCH (09:31)
[2019-12-20] MEDS: levETIRAcetam 500 MG TAB PO SCH (09:31)
[2019-12-20] MEDS: amLODIPine 5 MG TAB PO SCH (09:32)
[2019-12-20] MEDS: guaiFENesin 600 MG TABER PO SCH (09:32)
[2019-12-20] MEDS: ASCORBIC ACID 500 MG TAB PO SCH (09:33)
[2019-12-20] MEDS: MULTIVITAMIN/MINERALS 1 TAB PO SCH (09:33)
[2019-12-20] MEDS: ZINC SULF 220 MG CAP PO SCH (09:33)
[2019-12-20] MEDS: AZITHROMYCIN 250 MG TAB PO SCH (09:34)
--- NOTE | 2019-12-20 09:41 | NUR ---
ADMINISTERED SCHEDULED MEDICATION, MEDICATION EDUCATION GIVEN, PT TOLERATED MEDICATION WELL, PT IS STABLE, CALL LIGHT WITHIN REACH.
[2019-12-20] MEDS: NACL 0.9% 1,000 ML IV SCH (10:08)
--- NOTE | 2019-12-20 11:00 | NUR ---
PT RESTING IN BED, NO SIGNS OF DISTRESS NOTED, CALL LIGHT WITHIN REACH.
[2019-12-20 12:00] VITALS: BP 103/56
[2019-12-20] MEDS: CHLORHEXADINE GLUC 2% CLOTH TP SCH (13:00)
[2019-12-20] MEDS ORDERED: AMOX-1000 PO (13:13)
[2019-12-20] MEDS ORDERED: AZIT250T11 PO (13:13)
[2019-12-20] MEDS: MUPIROCIN CA NASAL 2% 1GM TUBE NS SCH (13:17)
[2019-12-20] MEDS: methylPREDNISolone SS 125 MG/2 ML VIAL IVP SCH (13:17)
--- NOTE | 2019-12-20 13:18 | NUR ---
ADMINISTERED SCHEDULED MEDICATION, EDUCATION GIVEN, PT VERBALIZED UNDERSTANDING, PT IS STABLE, CALL LIGHT WITHIN REACH.
[2019-12-20] MEDS ORDERED: LEVE750T3 PO (13:22)
--- NOTE | 2019-12-20 15:00 | NUR ---
PT IN BED WATCHING TV, PT IS STABLE, NO SIGNS OF DISTRESS NOTED, CALL LIGHT WITHIN REACH.
--- NOTE | 2019-12-20 15:28 | NUR ---
Daughter Hannah called, yelling angrily about discharge planning and why doctor changed his medications. Active listening and reassurance provided. Transferred call to Dr Lancaster.
[2019-12-20 16:00] VITALS: BP 105/59
--- NOTE | 2019-12-20 18:30 | NUR ---
PT DISCHARGED, DISCHARGED TEACHING GIVEN, REMOVED IV, PT STABLE, PT DISCHARGED TO [facility] VIA [facility],
== END 2019-12-20 18:30 | disposition home or self-care (01) | DRG 100 ==
LOC: EEVIPCON 20:19 → MED 20:19 → MTU 22:48
PROVIDERS: ADMIT General Practice; ATTEND General Practice
PROC: 4A00X4Z Measurement of Central Nervous Electrical Activity, External Approach (ICD-10-PCS; principal; 2019-12-19)
DX: G40.909 Epilepsy, unspecified, not intractable, without status epilepticus (principal); J96.01 Acute respiratory failure with hypoxia; J18.9 Pneumonia, unspecified organism; J44.0 Chronic obstructive pulmonary disease with (acute) lower respiratory infection; I69.351 Hemiplegia and hemiparesis following cerebral infarction affecting right dominant side; I69.354 Hemiplegia and hemiparesis following cerebral infarction affecting left non-dominant side; J44.1 Chronic obstructive pulmonary disease with (acute) exacerbation; G90.8 Other disorders of autonomic nervous system; E78.5 Hyperlipidemia, unspecified; F03.90 Unspecified dementia, unspecified severity, without behavioral disturbance, psychotic disturbance, mood disturbance, and anxiety; I10 Essential (primary) hypertension; J32.1 Chronic frontal sinusitis; M19.90 Unspecified osteoarthritis, unspecified site; F41.9 Anxiety disorder, unspecified; G47.00 Insomnia, unspecified; Z87.891 Personal history of nicotine dependence; Z90.49 Acquired absence of other specified parts of digestive tract; Z03.818 Encounter for observation for suspected exposure to other biological agents ruled out; Z79.899 Other long term (current) drug therapy; Z79.82 Long term (current) use of aspirin
CPT/HCPCS: 36415; 70450; 71045; 80048; 80053; 81001; 82550; 82553; 82728; 83036; 83605; 83615; 83690; 83735; 83880; 84100; 84443; 84484; 85025; 85379; 85384; 85610; 85651; 85730; 86140; 87040; 87081; 87086; 87420; 87804; 92610; 93005; 94640; 96374; 97110; 97112; 97161-GP; 97164; 97530; 99291; J0696; J1650; J1953; J2060; J2405; J2543; J2930; J3475; J7030; J7060; J7512

== ENCOUNTER 2023-09-01 20:09 | Emergency (ER) | payer OTHER, MEDICAID ==
[~2023-09-01] VITALS: Ht 172.7 cm; Wt 90.7 kg
[~2023-09-01 20:09] MED LIST: AMLO2.5T PO; AMOX-1000 PO; ASPI-1822 PO; AZIT250T11 PO; CARB15DR61 OT; CARV3.12 PO; DOCU-299 PO; LACT10CA1 PO; LEVE750T3 PO; LIP80 PO; MELA3TER PO; MUC600 PO; MULT1SGL58 PO; OLOP2.5D7 OP; SENN-72 PO
[2023-09-01 20:17] VITALS: BP 130/60; PULSE 64; RESP 20; TEMP 98; O2SAT 98
[2023-09-01] MEDS ORDERED: LIDOCAINE MPF 1% 10 MG/ML VIAL INJ ONE (21:10)
[2023-09-01] MEDS ORDERED: BACITRACIN OINT 500 UNITS/GM PKT TP ONE (21:55)
[2023-09-01] MEDS ORDERED: ONDANSETRON 4 MG ODT PO ONE (22:00)
== END 2023-09-02 00:20 | disposition home or self-care (01) ==
LOC: MED 20:09
DX: S61.217A Laceration without foreign body of left little finger without damage to nail, initial encounter (principal); I10 Essential (primary) hypertension; F41.9 Anxiety disorder, unspecified; Z86.69 Personal history of other diseases of the nervous system and sense organs; Z79.899 Other long term (current) drug therapy; Z79.2 Long term (current) use of antibiotics; Z79.82 Long term (current) use of aspirin; X58.XXXA Exposure to other specified factors, initial encounter; Y93.89 Activity, other specified; Y92.89 Other specified places as the place of occurrence of the external cause; Y99.8 Other external cause status
CPT/HCPCS: 12001; 73140; 90471; 90715; 99283; J2001; Q0092; Q0162

== ENCOUNTER 2024-02-11 20:28 | Inpatient (IN) | payer OTHER, MEDICAID ==
[~2024-02-11] VITALS: Ht 172.7 cm; Wt 113.4 kg
[2024-02-11 20:29] VITALS: BP 160/81; PULSE 61; RESP 18; TEMP 98; O2SAT 99
[2024-02-11 20:50] VITALS: O2SAT 97
[2024-02-11 22:15] VITALS: O2SAT 99
[2024-02-11] MEDS: HYDROcodone/APAP 5/325 MG 1 TAB TAB PO ONE (23:00)
[2024-02-11 23:42] LABS: LACTIC ACID 1.5 mmol/L (0.4-2.0)
[2024-02-11 23:45] LABS: ALANINE AMINOTRANSFERASE 21 U/L (12-78); ALBUMIN 3.4 g/dL (3.4-5.0); ALKALINE PHOSPHATASE 59 U/L (50-136); ANION GAP 8.3 (8-16); ASPARTATE AMINOTRANSFERASE 22 U/L (15-37); CALCIUM 9.3 mg/dL (8.5-10.1); CARBON DIOXIDE 34.6 mmol/L (21-32); CHLORIDE 104 mmol/L (98-107); CREATININE 1.1 mg/dL (0.6-1.3); GLUCOSE 118 mg/dL (74-106); POTASSIUM 3.9 mmol/L (3.5-5.1); SODIUM SERUM 143 mmol/L (136-145); TOTAL BILIRUBIN 0.4 mg/dL (0.0-1.0); TOTAL PROTEIN, SERUM 7.2 g/dL (6.4-8.2); UREA NITROGEN, BLOOD 21 mg/dL (7-18)
[2024-02-12 00:34] LABS: BASOPHILS # (AUTO) 0.1 K/uL (0.00-0.22); BASOPHILS % (AUTO) 1.2 % (0.0-2.0); EOSINOPHILS # (AUTO) 0.5 K/uL (0-0.4); EOSINOPHILS % (AUTO) 5.8 % (0.0-4.0); HEMOGLOBIN 14.3 g/dL (12.0-18.0); LYMPHOCYTES # (AUTO) 3.5 K/uL (2.0-11.5); LYMPHOCYTES % (AUTO) 39.2 % (20.5-51.1); MEAN CORPUSCULAR HEMOGLOBIN 31 pg (27-31); MEAN CORPUSCULAR HGB CONC 34 g/dL (33-37); MEAN CORPUSCULAR VOLUME 90.6 fL (80-94); MONOCYTES % (AUTO) 11.2 % (1.7-9.3); NEUTROPHILS # (AUTO) 3.8 K/uL (1.8-7.7); NEUTROPHILS % (AUTO) 42.6 % (42.2-75.2); PLATELET COUNT (AUTO) 196 K/uL (140-450); RED BLOOD CELL COUNT(AUTO) 4.63 MIL/uL (4.20-6.10); RED CELL DISTRIBUTION WIDTH 14.7 % (11.6-13.7); WHITE BLOOD COUNT (AUTO) 8.9 K/uL (4.8-10.8)
[2024-02-12 01:18] VITALS: O2SAT 99
[2024-02-12] MEDS: FUROSEMIDE 20 MG/2 ML VIAL IVP ONE (01:25)
[2024-02-12 03:15] VITALS: BP 154/62; PULSE 57; RESP 18; TEMP 97.5; O2SAT 99
[2024-02-12] MEDS: PANTOPRAZOLE 40 MG INJ VIAL IVP ONE (03:26)
[2024-02-12 07:18] LABS: BASOPHILS # (AUTO) 0.1 K/uL (0.00-0.22); BASOPHILS % (AUTO) 0.9 % (0.0-2.0); EOSINOPHILS # (AUTO) 0.4 K/uL (0-0.4); EOSINOPHILS % (AUTO) 5.5 % (0.0-4.0); HEMOGLOBIN 13.3 g/dL (12.0-18.0); LYMPHOCYTES # (AUTO) 2.8 K/uL (2.0-11.5); LYMPHOCYTES % (AUTO) 39.3 % (20.5-51.1); MEAN CORPUSCULAR HEMOGLOBIN 30 pg (27-31); MEAN CORPUSCULAR HGB CONC 34 g/dL (33-37); MEAN CORPUSCULAR VOLUME 89.1 fL (80-94); MONOCYTES % (AUTO) 13.6 % (1.7-9.3); NEUTROPHILS # (AUTO) 2.9 K/uL (1.8-7.7); NEUTROPHILS % (AUTO) 40.7 % (42.2-75.2); PLATELET COUNT (AUTO) 161 K/uL (140-450); RED BLOOD CELL COUNT(AUTO) 4.38 MIL/uL (4.20-6.10); WHITE BLOOD COUNT (AUTO) 7.2 K/uL (4.8-10.8)
[2024-02-12 07:59] LABS: ALANINE AMINOTRANSFERASE 20 U/L (12-78); ALBUMIN 2.9 g/dL (3.4-5.0); ALKALINE PHOSPHATASE 48 U/L (50-136); ANION GAP 9.8 (8-16); ASPARTATE AMINOTRANSFERASE 21 U/L (15-37); CALCIUM 8.8 mg/dL (8.5-10.1); CARBON DIOXIDE 32.7 mmol/L (21-32); CHLORIDE 104 mmol/L (98-107); GLUCOSE 96 mg/dL (74-106); POTASSIUM 3.5 mmol/L (3.5-5.1); SODIUM SERUM 143 mmol/L (136-145); TOTAL BILIRUBIN 0.4 mg/dL (0.0-1.0); TOTAL PROTEIN, SERUM 6.5 g/dL (6.4-8.2); UREA NITROGEN, BLOOD 19 mg/dL (7-18)
[2024-02-12 08:00] VITALS: BP 159/83; PULSE 50; PULSE 56; RESP 18; RESP 19; TEMP 98.3; O2SAT 95; O2SAT 99
[2024-02-12] MEDS: carvediloL 3.125 MG TAB PO SCH (09:00)
[2024-02-12] MEDS ORDERED: hydrALAZINE 20 MG/ML VIAL IVP PRN (09:05)
[2024-02-12] MEDS ORDERED: ONDANSETRON 4 MG/2 ML VIAL IVP PRN (09:05)
[2024-02-12] MEDS ORDERED: LORazepam 1 MG TAB PO PRN (09:05)
[2024-02-12] MEDS: levETIRAcetam 500 MG TAB PO SCH (10:18)
[2024-02-12] MEDS: ASPIRIN 81 MG TAB.CHEW PO SCH (10:19)
[2024-02-12] MEDS: SENNA 8.6 MG TAB PO SCH (10:19)
[2024-02-12 12:00] VITALS: BP 146/71; PULSE 52; RESP 18; TEMP 98; O2SAT 99
[2024-02-12] MEDS: HYDROcodone/APAP 5/325 MG 1 TAB TAB PO PRN (18:39)
[2024-02-12] MEDS: FUROSEMIDE 20 MG/2 ML VIAL IVP SCH (18:54)
[2024-02-12 20:00] VITALS: BP 159/70; PULSE 55; PULSE 68; RESP 17; RESP 19; TEMP 97.4; O2SAT 94; O2SAT 97
[2024-02-12] MEDS: ATORVASTATIN 80 MG TAB PO SCH (20:26)
[2024-02-12] MEDS: ZOLPIDEM 5 MG TAB PO PRN (20:32)
[2024-02-13 04:02] VITALS: BP 156/68; PULSE 55; RESP 17; TEMP 97.4; O2SAT 97
[2024-02-13 07:16] LABS: BASOPHILS # (AUTO) 0.1 K/uL (0.00-0.22); BASOPHILS % (AUTO) 0.8 % (0.0-2.0); EOSINOPHILS # (AUTO) 0.4 K/uL (0-0.4); EOSINOPHILS % (AUTO) 4.9 % (0.0-4.0); HEMATOCRIT 42.3 % (36-52); HEMOGLOBIN 14.2 g/dL (12.0-18.0); LYMPHOCYTES # (AUTO) 2.3 K/uL (2.0-11.5); MEAN CORPUSCULAR HEMOGLOBIN 30 pg (27-31); MEAN CORPUSCULAR HGB CONC 34 g/dL (33-37); MEAN CORPUSCULAR VOLUME 90.2 fL (80-94); MONOCYTES # (AUTO) 0.9 K/uL (0.8-1.0); MONOCYTES % (AUTO) 12.3 % (1.7-9.3); NEUTROPHILS # (AUTO) 3.8 K/uL (1.8-7.7); PLATELET COUNT (AUTO) 182 K/uL (140-450); RED BLOOD CELL COUNT(AUTO) 4.69 MIL/uL (4.20-6.10); RED CELL DISTRIBUTION WIDTH 14.3 % (11.6-13.7); WHITE BLOOD COUNT (AUTO) 7.4 K/uL (4.8-10.8)
[2024-02-13 07:25] LABS: ALANINE AMINOTRANSFERASE 17 U/L (12-78); ALBUMIN 3.1 g/dL (3.4-5.0); ALKALINE PHOSPHATASE 54 U/L (50-136); ANION GAP 9.7 (8-16); ASPARTATE AMINOTRANSFERASE 25 U/L (15-37); CALCIUM 8.6 mg/dL (8.5-10.1); CARBON DIOXIDE 31.8 mmol/L (21-32); CHLORIDE 104 mmol/L (98-107); GLUCOSE 90 mg/dL (74-106); POTASSIUM 3.5 mmol/L (3.5-5.1); SODIUM SERUM 142 mmol/L (136-145); TOTAL BILIRUBIN 0.6 mg/dL (0.0-1.0); TOTAL PROTEIN, SERUM 6.7 g/dL (6.4-8.2); UREA NITROGEN, BLOOD 19 mg/dL (7-18)
[2024-02-13 08:00] VITALS: BP 145/67; PULSE 65; RESP 18; TEMP 97.1; O2SAT 97
[2024-02-13 09:02] VITALS: PULSE 70
[2024-02-13 09:04] VITALS: PULSE 55; PULSE 70; RESP 20; O2SAT 97
[2024-02-13] MEDS: PANTOPRAZOLE 40 MG INJ VIAL IVP SCH (10:11)
[2024-02-13] MEDS: DOCUSATE SODIUM 100 MG GELCAP PO SCH (10:12)
[2024-02-13 16:00] VITALS: BP 139/65; PULSE 49; RESP 19; TEMP 97.8; O2SAT 97
[2024-02-13 20:00] VITALS: BP 149/81; PULSE 67; RESP 18; RESP 20; TEMP 97.4; O2SAT 95; O2SAT 99
[2024-02-14] VITALS (7 sets, daily range): BP systolic 152–161; BP diastolic 73–76; PULSE 59–77; RESP 18–20; TEMP 96.8–97.8; O2SAT 95–97
[2024-02-14] MEDS ORDERED: ALBU0.0912 IH (01:04)
[2024-02-14] MEDS: ALBUTEROL SULFATE/IPRATROPIU 3 ML SOL IH PRN (01:26)
[2024-02-14 07:17] LABS: BASOPHILS # (AUTO) 0.1 K/uL (0.00-0.22); BASOPHILS % (AUTO) 1.1 % (0.0-2.0); EOSINOPHILS # (AUTO) 0.4 K/uL (0-0.4); EOSINOPHILS % (AUTO) 4.4 % (0.0-4.0); HEMATOCRIT 40.1 % (36-52); HEMOGLOBIN 13.8 g/dL (12.0-18.0); LYMPHOCYTES # (AUTO) 2.5 K/uL (2.0-11.5); LYMPHOCYTES % (AUTO) 29.2 % (20.5-51.1); MEAN CORPUSCULAR HEMOGLOBIN 31 pg (27-31); MEAN CORPUSCULAR HGB CONC 34 g/dL (33-37); MEAN CORPUSCULAR VOLUME 88.5 fL (80-94); MONOCYTES # (AUTO) 0.8 K/uL (0.8-1.0); MONOCYTES % (AUTO) 9.7 % (1.7-9.3); NEUTROPHILS # (AUTO) 4.8 K/uL (1.8-7.7); NEUTROPHILS % (AUTO) 55.6 % (42.2-75.2); PLATELET COUNT (AUTO) 180 K/uL (140-450); RED BLOOD CELL COUNT(AUTO) 4.53 MIL/uL (4.20-6.10); RED CELL DISTRIBUTION WIDTH 14.2 % (11.6-13.7); WHITE BLOOD COUNT (AUTO) 8.6 K/uL (4.8-10.8)
[2024-02-14 07:34] LABS: ALANINE AMINOTRANSFERASE 19 U/L (12-78); ALBUMIN 3.3 g/dL (3.4-5.0); ALKALINE PHOSPHATASE 56 U/L (50-136); ANION GAP 9.8 (8-16); ASPARTATE AMINOTRANSFERASE 27 U/L (15-37); CALCIUM 8.4 mg/dL (8.5-10.1); CARBON DIOXIDE 31.9 mmol/L (21-32); CHLORIDE 102 mmol/L (98-107); GLUCOSE 90 mg/dL (74-106); POTASSIUM 3.7 mmol/L (3.5-5.1); SODIUM SERUM 140 mmol/L (136-145); TOTAL BILIRUBIN 0.8 mg/dL (0.0-1.0); UREA NITROGEN, BLOOD 19 mg/dL (7-18)
[2024-02-14] MEDS ORDERED: LACTULOSE 20 GM/30 ML UDC PO SCH ×2 (12:55→21:00)
[2024-02-14] MEDS: LACTULOSE 20 GM/30 ML UDC PO SCH ×2 (13:37→21:09)
[2024-02-14] MEDS: FUROSEMIDE 20 MG/2 ML VIAL IVP SCH (22:30)
[2024-02-15 04:00] VITALS: BP 154/71; PULSE 79; RESP 18; TEMP 97.6; O2SAT 96
[2024-02-15 06:45] LABS: BASOPHILS # (AUTO) 0.1 K/uL (0.00-0.22); EOSINOPHILS # (AUTO) 0.3 K/uL (0-0.4); HEMATOCRIT 39.6 % (36-52); HEMOGLOBIN 13.5 g/dL (12.0-18.0); LYMPHOCYTES # (AUTO) 2.6 K/uL (2.0-11.5); LYMPHOCYTES % (AUTO) 30.8 % (20.5-51.1); MEAN CORPUSCULAR HEMOGLOBIN 30 pg (27-31); MEAN CORPUSCULAR HGB CONC 34 g/dL (33-37); MEAN CORPUSCULAR VOLUME 88.1 fL (80-94); MONOCYTES # (AUTO) 1.1 K/uL (0.8-1.0); MONOCYTES % (AUTO) 12.5 % (1.7-9.3); NEUTROPHILS # (AUTO) 4.4 K/uL (1.8-7.7); NEUTROPHILS % (AUTO) 51.7 % (42.2-75.2); PLATELET COUNT (AUTO) 172 K/uL (140-450); RED BLOOD CELL COUNT(AUTO) 4.49 MIL/uL (4.20-6.10); RED CELL DISTRIBUTION WIDTH 14.1 % (11.6-13.7); WHITE BLOOD COUNT (AUTO) 8.4 K/uL (4.8-10.8)
[2024-02-15 07:04] LABS: ALANINE AMINOTRANSFERASE 23 U/L (12-78); ALBUMIN 3.2 g/dL (3.4-5.0); ALKALINE PHOSPHATASE 54 U/L (50-136); ANION GAP 9.9 (8-16); ASPARTATE AMINOTRANSFERASE 32 U/L (15-37); CALCIUM 8.2 mg/dL (8.5-10.1); CARBON DIOXIDE 28.7 mmol/L (21-32); CHLORIDE 104 mmol/L (98-107); CREATININE 0.8 mg/dL (0.6-1.3); GLUCOSE 105 mg/dL (74-106); POTASSIUM 3.6 mmol/L (3.5-5.1); SODIUM SERUM 139 mmol/L (136-145); TOTAL BILIRUBIN 0.6 mg/dL (0.0-1.0); TOTAL PROTEIN, SERUM 6.7 g/dL (6.4-8.2); UREA NITROGEN, BLOOD 14 mg/dL (7-18)
[2024-02-15 08:00] VITALS: BP 161/73; PULSE 62; RESP 18; TEMP 97.2; O2SAT 98
[2024-02-15 08:10] VITALS: O2SAT 95
[2024-02-15] MEDS: NAPROXEN 500 MG TAB PO SCH (08:59)
[2024-02-15 10:55] VITALS: BP 161/73; PULSE 62; RESP 18; TEMP 97.2
[2024-02-15] MEDS ORDERED: LOSA-272 PO (13:16)
[2024-02-15] MEDS ORDERED: LAS20I IJ (13:19)
[2024-02-15] MEDS ORDERED: FURO-572 PO (13:20)
== END 2024-02-15 16:20 | DRG 300 ==
LOC: MED 20:28 → MMU 02-12 02:17 → MTU 02-12 02:45
PROVIDERS: ADMIT Student in an Organized Health Care Education/Training Program; ATTEND Student in an Organized Health Care Education/Training Program
DX: I73.9 Peripheral vascular disease, unspecified (principal); I69.354 Hemiplegia and hemiparesis following cerebral infarction affecting left non-dominant side; L03.116 Cellulitis of left lower limb; M17.12 Unilateral primary osteoarthritis, left knee; I10 Essential (primary) hypertension; Z79.899 Other long term (current) drug therapy; E88.09 Other disorders of plasma-protein metabolism, not elsewhere classified
CPT/HCPCS: 36415; 71045; 73590; 73620; 80053; 83605; 83880; 84484; 84550; 85025; 86140; 87081; 93925; 93970; 93971; 94640; 96374; 97110; 97112; 97163-GP; 97530; 99285; C9113; J1940; Q0092

== ENCOUNTER 2024-03-15 20:02 | Emergency (ER) | payer OTHER, MEDICAID ==
[~2024-03-15] VITALS: Ht 175.3 cm; Wt 72.6 kg
[~2024-03-15 20:02] MED LIST changes: +ALBU0.0912 IH; -AMLO2.5T PO
[2024-03-15 20:05] VITALS: BP 124/76; PULSE 56; RESP 18; TEMP 98.7; O2SAT 98
[2024-03-15 20:35] VITALS: BP 124/76; O2SAT 99
[2024-03-15 20:50] VITALS: PULSE 53; RESP 16; O2SAT 97
[2024-03-15] MEDS: IPRATROPIUM 0.02% 0.5 MG/2.5 ML NEBU INH ONE (20:50)
[2024-03-15] MEDS: ALBUTEROL 0.083% 2.5 MG/3 ML NEBU INH ONE ×2 (20:50→22:07)
[2024-03-15 21:10] LABS: BASOPHILS # (AUTO) 0.1 K/uL (0.00-0.22); EOSINOPHILS # (AUTO) 0.4 K/uL (0-0.4); EOSINOPHILS % (AUTO) 4.7 % (0.0-4.0); HEMATOCRIT 41.1 % (36-52); HEMOGLOBIN 14.1 g/dL (12.0-18.0); LYMPHOCYTES # (AUTO) 2.6 K/uL (2.0-11.5); LYMPHOCYTES % (AUTO) 31.8 % (20.5-51.1); MEAN CORPUSCULAR HEMOGLOBIN 31 pg (27-31); MEAN CORPUSCULAR HGB CONC 34 g/dL (33-37); MEAN CORPUSCULAR VOLUME 90.6 fL (80-94); MONOCYTES # (AUTO) 1.1 K/uL (0.8-1.0); MONOCYTES % (AUTO) 13.5 % (1.7-9.3); NEUTROPHILS # (AUTO) 4.1 K/uL (1.8-7.7); PLATELET COUNT (AUTO) 137 K/uL (140-450); RED BLOOD CELL COUNT(AUTO) 4.54 MIL/uL (4.20-6.10); RED CELL DISTRIBUTION WIDTH 14.7 % (11.6-13.7); WHITE BLOOD COUNT (AUTO) 8.3 K/uL (4.8-10.8)
[2024-03-15 21:26] LABS: INR 1.16 (0.8-1.2); PARTIAL THROMBOPLASTIN TIME 27.2 secs (22-35.6); PROTHROMBIN TIME 12.1 secs (10.8-13.4)
[2024-03-15 21:28] LABS: ANION GAP 8.7 (8-16); CARBON DIOXIDE 29.5 mmol/L (21-32); CHLORIDE 106 mmol/L (98-107); GLUCOSE 102 mg/dL (74-106); POTASSIUM 3.2 mmol/L (3.5-5.1); SODIUM SERUM 141 mmol/L (136-145); UREA NITROGEN, BLOOD 15 mg/dL (7-18)
[2024-03-15] MEDS: predniSONE 20 MG TAB PO ONE (21:56)
[2024-03-15 22:07] VITALS: PULSE 52; RESP 17; O2SAT 100
[2024-03-15] MEDS ORDERED: AZIT250T4 PO (22:17)
[2024-03-15] MEDS ORDERED: ALBU0.0912 INH (22:18)
[2024-03-15] MEDS ORDERED: PRED20TA5 PO (22:19)
== END 2024-03-16 01:30 ==
LOC: MED 20:02
DX: J44.1 Chronic obstructive pulmonary disease with (acute) exacerbation (principal); I10 Essential (primary) hypertension; Z86.69 Personal history of other diseases of the nervous system and sense organs; Z79.1 Long term (current) use of non-steroidal anti-inflammatories (NSAID); Z79.82 Long term (current) use of aspirin; Z79.2 Long term (current) use of antibiotics; Z79.899 Other long term (current) drug therapy
CPT/HCPCS: 36415; 71045; 80048; 83880; 84484; 85025; 85610; 85730; 93005; 94640; 99285; J7512; J7613; J7644